=== PATIENT | female | born 1980 | race Caucasian/White ===

== ENCOUNTER 2016-12-08 18:46 | Emergency (ER) | payer MEDICAID ==
[~2016-12-08] VITALS: Ht 157.5 cm; Wt 64.0 kg
[2016-12-08 18:47] VITALS: Ht 157.5 cm; Wt 64.0 kg
[2016-12-08] MEDS ORDERED: ACETAMINOPHEN 325 MG TAB PO ONE (20:00)
[2016-12-08 20:05] LABS: ADD SCAN DIFF NO
[2016-12-08 20:06] LABS: BASOPHILS % 0.2 % (0.0-2.0); EOSINOPHILS # 0.1 10^3/ul (0.0-0.5); HEMATOCRIT 38.7 % (37.0-47.0); HEMOGLOBIN 13.3 g/dl (12.0-16.0); LYMPHOCYTES % 16.7 % (15.0-51.0); MEAN CORPUSCULAR HEMOGLOBIN 29.3 pg (29.0-33.0); MEAN CORPUSCULAR HGB CONC 34.4 g/dl (32.0-37.0); MEAN CORPUSCULAR VOLUME 85.2 fl (82.0-101.0); MONOCYTE # 0.7 10^3/ul (0.3-0.9); MONOCYTES % 5.4 % (0.0-11.0); NEUTROPHIL # 9.1 10^3/ul (1.6-7.5); NEUTROPHILS % 75.8 % (39.0-77.0); PLATELET COUNT 198 10^3/UL (140-415); RED BLOOD COUNT 4.54 10^6/ul (4.20-5.40); RED CELL DISTRIBUTION WIDTH 11.9 % (11.5-14.5); WHITE BLOOD COUNT 12.1 10^3/ul (4.8-10.8)
[2016-12-08 20:09] LABS: ADD UMIC YES; UR BILIRUBIN (Dip) 1+ (NEGATIVE); UR BLOOD (Dip) 3+ (NEGATIVE); UR CLARITY CLOUDY (CLEAR); UR COLOR YELLOW (YELLOW); UR GLUCOSE (Dip) NEGATIVE (NEGATIVE); UR KETONES (Dip) 15 (NEGATIVE); UR LEUKOCYTE ESTERASE (Dip) NEGATIVE (NEGATIVE); UR NITRITE (Dip) NEGATIVE (NEGATIVE); UR TOTAL PROTEIN (Dip) 1+ (NEGATIVE); UR UROBILINOGEN (Dip) 0.2 E.U./dL (0.1-1.0)
[2016-12-08 20:24] LABS: ICTOTEST NEGATIVE (NEGATIVE); UR BACTERIA FEW; UR SQUAMOUS EPITHELIAL CELL MODERATE; URINE RBCS >200 /HPF (0)
--- NOTE | 2016-12-08 20:29 | RADRPT ---
PROCEDURE: US Obstetric less than 14 weeks. CLINICAL INDICATION: , vaginal bleeding TECHNIQUE: Transabdominal imaging of the pelvis was performed. Images are reviewed on a high-reso [employer] PACS workstation. COMPARISON: None available FINDINGS: No intrauterine gestational sac is identified. The endometrium is not significantly thickened. Bilateral ovaries are unremarkable. No ovarian torsion, adnexal mass or pelvic free fluid is seen. IMPRESSION: 1. No sonographic evidence of intrauterine or ectopic gestation is seen at this time. Continued ul trasound and/or beta HCG follow-up is recommended to definitively exclude occult ectopic gestation. RPTAT: HH .Faheem Almanzar MD, MD Date Time Electronically viewed and signed by .Faheem Almanzar MD, on 12/08/2016 20:28 .R/
[2016-12-08 21:36] VITALS: BP 113/64; PULSE 89; RESP 20
--- NOTE | 2016-12-09 02:27 | ERD ---
ER Documentation Chief Complaint Date/Time DATE: 12/09/16 TIME: 02:23 Chief Complaint 4 months , vag bleeding x 3 days HPI This patient is a 36-year-old female who is Ab1, LMP was September 09, 2016, presenting to the emergency department for 1 day of heavy vaginal bleeding. This is been ongoing for a total of 2 days worse today. She had pain earlier this a.m. but this resolved. She denies any fevers, urinary symptoms, or other symptoms. ROS All systems reviewed and are negative except as per history of present illness. Allergies Allergies: Coded Allergies: No Known Allergy (Unverified , 12/08/16) PMhx/Soc Medical and Surgical Hx: pt denies Medical Hx, pt denies Surgical Hx Hx Alcohol Use: Yes Hx Substance Use: No Hx Tobacco Use: No Physical Exam Vitals Vital Signs Date Time Temp Pulse Resp B/P Pulse Ox O2 Delivery O2 Flow Rate FiO2 12/08/16 21:36 89 20 113/64 99 Room Air 12/08/16 18:47 99.7 94 20 116/56 97 Physical Exam Const: Nontoxic, well-appearing female in no acute distress. Head: Atraumatic Eyes: Normal Conjunctiva ENT: Normal External Ears, Nose and Mouth. Neck: Full range of motion..~ No meningismus. Resp: Clear to auscultation bilaterally Cardio: Regular rate and rhythm, no murmurs Abd: Soft, non tender, non distended. Normal bowel sounds Skin: No petechiae or rashes Back: No midline or flank tenderness Ext: No cyanosis, or edema Neur: Awake and alert Psych: Normal Mood and Affect Result Diagram: 12/08/169 Results 24 hrs Laboratory Tests Test 12/08/16 19:39 White Blood Count 12.110^3/ul Red Blood Count 4.5410^6/ul Hemoglobin 13.3g/dl Hematocrit 38.7% Mean Corpuscular Volume 85.2fl Mean Corpuscular Hemoglobin 29.3pg Mean Corpuscular Hemoglobin Concent 34.4g/dl Red Cell Distribution Width 11.9% Platelet Count 94125^3/UL Mean Platelet Volume 12.0fl Neutrophils % 75.8% Lymphocytes % 16.7% Monocytes % 5.4% Eosinophils % 1.0% Basophils % 0.2% Nucleated Red Blood Cells % 0.0/100WBC Neutrophils # 9.110^3/ul Lymphocytes # 2.010^3/ul Monocytes # 0.710^3/ul Eosinophils # 0.110^3/ul Basophils # 0.010^3/ul Nucleated Red Blood Cells # 0.010^3/ul Urine Color YELLOW Urine Clarity CLOUDY Urine pH 5.5 Urine Specific Dittmer >=1.030 Urine Ketones 15 Urine Nitrite NEGATIVE Urine Bilirubin 1+ Urine Ictotest NEGATIVE Urine Urobilinogen 0.2 E.U./dL Urine Leukocyte Esterase NEGATIVE Urine Microscopic RBC >200/HPF Urine Microscopic WBC NONE SEEN/HPF Urine Squamous Epithelial Cells MODERATE Urine Bacteria FEW Urine Hemoglobin 3+ Urine Glucose NEGATIVE% Urine Total Protein 1+ Beta HCG, Quantitative 2306.5mIU/ml Current Medications Medications (Trade) Dose Ordered Sig/[place] Route PRN Reason Start Time Stop Time Status Last Admin Dose Admin Acetaminophen (Tylenol Tab) 650 mg ONCE ONCE PO 12/08/16 20:00 12/08/16 20:01 DC 12/08/16 20:02 PROCEDURE: US Obstetric less than 14 weeks. CLINICAL INDICATION: , vaginal bleeding TECHNIQUE: Transabdominal imaging of the pelvis was performed. Images are reviewed on a high-resolution PACS workstation. COMPARISON: None available FINDINGS: No intrauterine gestational sac is identified. The endometrium is not significantly thickened. Bilateral ovaries are unremarkable. No ovarian torsion, adnexal mass or pelvic free fluid is seen. IMPRESSION: 1. No sonographic evidence of intrauterine or ectopic gestation is seen at this time. Continued ultrasound and/or beta HCG follow-up is recommended to definitively exclude occult ectopic gestation. RPTAT: HH .Faheem Almanzar MD, Date Time Electronically viewed and signed by .Faheem Almanzar MD, on 12/08/2016 20: 28 .R/ CC: YAMILE ARNOLDC Procedures/[facility] 36-year-old female presenting to the emergency department for vaginal bleeding which began yesterday. The patient's physical examination is essentially benign. CBC showed slight leukocytosis but not significant. Urinalysis was not concerning for urinary tract infection. Beta-hCG was 2306, which is within the discriminatory zone. Ultrasound showed no IUP. Differential diagnosis is early versus missed . Ectopic was considered however the patient had normal vital signs and remained stable throughout her ED course she had no tenderness palpation of the suprapubic area and her beta hCG stayed with in the discriminatory zone, therefore she was advised to have 24 hour repeat of hCG and she may return here sooner if her symptoms worsen or continue. Close follow-up with the primary care physician advised. Strict ER return precautions discussed. At this time I low suspicion for ectopic , ovarian torsion, acute abdomen, septicemia, or other emergent conditions. The patient agreed with the discharge plan of diagnosis. PROCEDURE: US Obstetric less than 14 weeks. CLINICAL INDICATION: , vaginal bleeding TECHNIQUE: Transabdominal imaging of the pelvis was performed. Images are reviewed on a high-resolution PACS workstation. COMPARISON: None available FINDINGS: No intrauterine gestational sac is identified. The endometrium is not significantly thickened. Bilateral ovaries are unremarkable. No ovarian torsion, adnexal mass or pelvic free fluid is seen. IMPRESSION: 1. No sonographic evidence of intrauterine or ectopic gestation is seen at this time. Continued ultrasound and/or beta HCG follow-up is recommended to definitively exclude occult ectopic gestation. RPTAT: HH .Faheem Almanzar MD, MD Date Time Electronically viewed and signed by .Faheem Almanzar MD, MD on 12/08/2016 20: 28 .R/ CC: YAMILE ARNOLD PA-C [facility] Diagnosis: Primary Impression: Vaginal bleeding in patient at less than 20 weeks ges... Condition: Fair Patient Instructions: Bleeding During Early Referrals: JERROD CARDOZO MD (PCP) Additional Instructions: Regrese en 48 horas por otra evaluacion, o antes tener mas sintomas, o sintomas mas amalia. No mas mejor en 2-3 haile, regresar. Mas peor en 24 horas, regresear rapidamente. Ir a doctor primario in 5-7 haile. Usar instrucciones cuando leila medicamento. YAMILE ARNOLD PA-C Dec 09, 2016 02:27
== END 2016-12-08 21:37 | disposition home or self-care (01) ==
LOC: FTE 18:46
DX: O20.9 Hemorrhage in early pregnancy, unspecified (principal); Z3A.00 Weeks of gestation of pregnancy not specified
CPT/HCPCS: 36415; 76801; 81001; 84702; 85025; 86900; 86901; Z7502; Z7610